=== PATIENT | male | born 1990 | race American Indian/Alaskan Native ===

== ENCOUNTER 2018-09-26 20:22 | Emergency (ER) | payer SELFPAY ==
[~2018-09-26] VITALS: Ht 162.6 cm; Wt 54.5 kg
[2018-09-26 20:29] VITALS: BP 171/91; TEMP 98.4
[2018-09-26] MEDS ORDERED: FLEXERIL 1010 MG/TAB PO (21:35)
[2018-09-26 21:51] VITALS: PULSE 81
== END 2018-09-26 21:52 | disposition home or self-care (01) ==
LOC: COL.ER 20:22
DX: S16.1XXA Strain of muscle, fascia and tendon at neck level, initial encounter (principal); F17.210 Nicotine dependence, cigarettes, uncomplicated; X50.1XXA Overexertion from prolonged static or awkward postures, initial encounter